=== PATIENT | female | born 1950 | race Caucasian/White ===

== ENCOUNTER → 2016-12-29 | Outpatient (REF) | payer MEDICARE, OTHER ==
[~2016-12-29] MED LIST: /BACL20TA PO; /BISA10SU PR; /ESCI10TA PO; /MOM400 PO; /PANT40TA PO; ACET-654 PO; ACET650S3 PR; ACETGRA PR; ASPI81TA85 PO; BACL10TA2 PO; BALMEX TOP; BISA10SU30 PR; CALC500T36 PO; CIPR500T89 PO; COUMADIN PO; DILA100C PO; ENSU-12 PO; ENSULIQ2 PO; ENSURE COMPLETE PO; JEVILIQ10 PO; KLOR10TA5 PO; LEVA250T PO; LEVO250T PO; LIPI20TA PO; LOPR1TAB6 PO; LORT5TAB PO; MAGN400C2 PO; MAGN400T5 PO; MAGNESIUM HYDROXIDE PO; METO50TA2 PO; MILK2400 PO; MOM30SS PO; MULTIVITAMIN/MINERAL PO; MYLASUS2 PO; NYSTATIN POWDER TOP; OMEP40CA2 PO; PHEN125S PO; PREV30CA6 PO; PROC10TA PO; PROM25AM IM; PROT1TAB2 PO; PYRI200T5 PO; TUMS500C PO; TYLE325T5 PO; VESI10TA PO; VITA20008 PO; WATER GT; XARE15TA PO; [UNRECOGNIZED DRUG - CODE] PR; [UNRECOGNIZED DRUG - OTHER]
== END ==
LOC: M LAB REF 12:45
PROVIDERS: ATTEND Internal Medicine
DX: R30.0 Dysuria (principal)

== ENCOUNTER → 2017-02-12 | Outpatient (REF) | payer MEDICARE, OTHER ==
[~2017-02-12] MED LIST changes: +MYLASUS16 PO; -MYLASUS2 PO
== END ==
LOC: SKLABADC 08:44
PROVIDERS: ATTEND Psychiatry & Neurology Neurology
DX: I63.9 Cerebral infarction, unspecified (principal); R56.9 Unspecified convulsions; Z79.899 Other long term (current) drug therapy

== ENCOUNTER → 2017-03-26 | Outpatient (REF) | payer MEDICARE, OTHER ==
[2017-03-26 12:13] LABS: BASO % 0.6 % (0.0-1.0); EOS # 0.1 K/mm3 (0.0-0.50); EOS % 1.4 % (0.0-3.0); LARGE UNSTAINED CELL # 0.1 K/mm3 (0.0-0.4); LARGE UNSTAINED CELL % 1.5 % (0.0-4.0); LYMPH # 1.8 K/mm3 (1.5-4.5); LYMPH % 30.2 % (24.0-44.0); MEAN CORPUSCULAR HEMOGLOBIN 31.7 pg (27.0-33.0); MEAN CORPUSCULAR HGB CONC 32.9 g/dl (32.0-36.5); MEAN CORPUSCULAR VOLUME 96.5 fl (80.0-96.0); MONO # 0.4 K/mm3 (0.0-0.8); MONO % 6.5 % (0.0-5.0); NEUTROPHILS # 3.3 K/mm3 (1.8-7.7); NEUTROPHILS % 59.9 % (36.0-66.0); PLATELET COUNT, AUTOMATED 300 k/mm3 (150-450); RED CELL DISTRIBUTION WIDTH 13.4 % (11.5-14.5); WHITE BLOOD COUNT 5.5 K/mm3 (4.0-10.0)
[2017-03-26 12:53] LABS: ANION GAP 8 MEQ/L (8-16); BLOOD UREA NITROGEN 20 MG/DL (7-18); CALCIUM LEVEL 9.3 MG/DL (8.8-10.2); CARBON DIOXIDE LEVEL 30 MEQ/L (21-32); CHLORIDE LEVEL 104 MEQ/L (98-107); CHOLESTEROL LEVEL 182 MG/DL (<200); CREATININE FOR GFR 0.65 MG/DL (0.55-1.02); GLOMERULAR FILTRATION RATE > 60.0 (>45); GLUCOSE, FASTING 73 MG/DL (80-110); POTASSIUM SERUM 4.1 MEQ/L (3.5-5.1); SODIUM LEVEL 142 MEQ/L (136-145); TRIGLYCERIDES LEVEL 94 MG/DL (<150)
== END ==
LOC: SKLABADC 08:40
PROVIDERS: ATTEND Internal Medicine
DX: E78.5 Hyperlipidemia, unspecified (principal); K76.0 Fatty (change of) liver, not elsewhere classified

== ENCOUNTER → 2017-07-17 | Outpatient (REF) | payer MEDICARE, OTHER ==
[~2017-07-17] MED LIST changes: -ACET-654 PO; +ACET1TAB17 PO; +LEVA1TAB PO; -LEVA250T PO; +PYRI1TAB5 PO; -PYRI200T5 PO; -VESI10TA PO; +VESI10TA2 PO
== END ==
LOC: M LAB REF 16:00
PROVIDERS: ATTEND Internal Medicine
DX: N39.0 Urinary tract infection, site not specified (principal); N32.81 Overactive bladder

== ENCOUNTER → 2017-08-09 | Outpatient (REF) | payer MEDICARE, OTHER ==
[2017-08-09 13:15] LABS: MEAN CORPUSCULAR HGB CONC 32.7 g/dl (32.0-36.5); PLATELET COUNT, AUTOMATED 321 10^3/uL (150-450); WHITE BLOOD COUNT 5.7 10^3/uL (4.0-10.0)
[2017-08-09 13:32] LABS: ADD MANUAL DIFFER YES; ALBUMIN 3.3 GM/DL (3.2-5.2); ALBUMIN/GLOBULIN RATIO 0.77 (1.00-1.93); ALKALINE PHOSPHATASE 208 U/L (45-117); ALT/SGPT 60 U/L (12-78); ANION GAP 6 MEQ/L (8-16); AST/SGOT 52 U/L (15-37); BILIRUBIN,TOTAL 0.2 MG/DL (0.2-1.0); BLOOD UREA NITROGEN 14 MG/DL (7-18); CALCIUM LEVEL 8.8 MG/DL (8.8-10.2); CARBON DIOXIDE LEVEL 31 MEQ/L (21-32); CHLORIDE LEVEL 105 MEQ/L (98-107); CREATININE FOR GFR 0.59 MG/DL (0.55-1.02); DIFF SLIDE NUMBER 224; GLOMERULAR FILTRATION RATE > 60.0 (>45); GLUCOSE, FASTING 98 MG/DL (80-110); POTASSIUM SERUM 4.1 MEQ/L (3.5-5.1); SODIUM LEVEL 142 MEQ/L (136-145); TOTAL PROTEIN 7.6 GM/DL (6.4-8.2)
[2017-08-09 15:57] LABS: BANDS 1 % (< 11); EOSINOPHILS 1 % (0-5)
== END ==
LOC: SKLABADC 11:06
PROVIDERS: ATTEND Internal Medicine
DX: I69.854 Hemiplegia and hemiparesis following other cerebrovascular disease affecting left non-dominant side (principal); N39.0 Urinary tract infection, site not specified; K76.0 Fatty (change of) liver, not elsewhere classified; R79.89 Other specified abnormal findings of blood chemistry; G40.509 Epileptic seizures related to external causes, not intractable, without status epilepticus

== ENCOUNTER → 2017-10-22 | Outpatient (REF) | payer MEDICARE, OTHER ==
[~2017-10-22] MED LIST changes: +AMOX500C PO; +IBUP-1022 PO; +LANS30CA; +MONT10TA2; +PERC5TAB12 PO
[2017-10-22 10:35] LABS: BASO % 0.3 % (0.0-1.0); EOS % 0.4 % (0.0-3.0); IMMATURE GRANULOCYTE % 0.3 % (0-0); LYMPH # 2.1 10^3/uL (1.5-4.5); LYMPH % 30.2 % (24.0-44.0); MEAN CORPUSCULAR HEMOGLOBIN 30.8 pg (27.0-33.0); MEAN CORPUSCULAR VOLUME 93.4 fl (80.0-96.0); MONO # 0.9 10^3/uL (0.0-0.8); MONO % 12.6 % (0.0-5.0); NEUTROPHILS # 3.9 10^3/uL (1.8-7.7); NEUTROPHILS % 56.2 % (36.0-66.0); PLATELET COUNT, AUTOMATED 323 10^3/uL (150-450); RED CELL DISTRIBUTION WIDTH 14.1 % (11.5-14.5); WHITE BLOOD COUNT 6.9 10^3/uL (4.0-10.0)
[2017-10-22 11:25] LABS: ALBUMIN 3.3 GM/DL (3.2-5.2); ALBUMIN/GLOBULIN RATIO 0.77 (1.00-1.93); ALKALINE PHOSPHATASE 198 U/L (45-117); ALT/SGPT 28 U/L (12-78); ANION GAP 9 MEQ/L (8-16); AST/SGOT 18 U/L (7-37); BILIRUBIN,TOTAL 0.2 MG/DL (0.2-1.0); BLOOD UREA NITROGEN 16 MG/DL (7-18); CALCIUM LEVEL 8.9 MG/DL (8.8-10.2); CARBON DIOXIDE LEVEL 26 MEQ/L (21-32); CHLORIDE LEVEL 107 MEQ/L (98-107); CREATININE FOR GFR 0.65 MG/DL (0.55-1.02); GLOMERULAR FILTRATION RATE > 60.0 (>45); GLUCOSE, FASTING 96 MG/DL (80-110); POTASSIUM SERUM 4.2 MEQ/L (3.5-5.1); SODIUM LEVEL 142 MEQ/L (136-145); TOTAL PROTEIN 7.6 GM/DL (6.4-8.2)
== END ==
LOC: SKLABADC 09:05
PROVIDERS: ATTEND Psychiatry & Neurology Neurology
DX: R56.9 Unspecified convulsions (principal); I63.9 Cerebral infarction, unspecified

== ENCOUNTER 2017-10-25 08:52 | Emergency (ER) | payer MEDICARE, OTHER ==
[~2017-10-25] VITALS: Ht 162.6 cm; Wt 103.0 kg
[~2017-10-25 08:52] MED LIST changes: -AMOX500C PO; -IBUP-1022 PO; -LANS30CA; -MONT10TA2; -PERC5TAB12 PO
[2017-10-25 09:21] VITALS: BP 132/68
[2017-10-25] MEDS ORDERED: DILA100C PO (09:26)
[2017-10-25] MEDS ORDERED: LANS30CA (09:26)
[2017-10-25] MEDS ORDERED: MONT10TA2 (09:26)
[2017-10-25] MEDS ORDERED: AMOX500C PO (09:41)
[2017-10-25] MEDS ORDERED: IBUP-1022 PO (09:47)
[2017-10-25] MEDS ORDERED: PERC5TAB12 PO (09:47)
== END 2017-10-25 09:56 | disposition home or self-care (01) ==
LOC: M ED 08:52
DX: K05.10 Chronic gingivitis, plaque induced (principal); K08.89 Other specified disorders of teeth and supporting structures; Z79.899 Other long term (current) drug therapy; Z79.82 Long term (current) use of aspirin

== ENCOUNTER → 2017-11-01 | Outpatient (CLI) | payer MEDICARE, OTHER ==
[~2017-11-01] MED LIST changes: +AMOX500C PO; +IBUP-1022 PO; +LANS30CA; +MONT10TA2; +PERC5TAB12 PO
--- NOTE | 2017-11-01 11:19 | REPMRS ---
Patient History The patient states she has not had a clinical breast exam in over a year. Patient is postmenopausal, has history of cancer in the right breast at age 53, had previous chemotherapy at age 53, and is nulliparous. Family history of prostate cancer in father at age 50 or over and breast cancer in mother at age 45. Benign radio exam breast specimen of the right breast, October 18, 2014. Benign stereotatic loc for ea lesion of the right breast, October 18, 2014. Benign excisional biopsy of the left breast, 2003. Malignant excisional biopsy of the right breast, 2003. Chemotherapy, 2003. Radiation therapy of the right breast, 2003. Took tamoxifen for 5 years. Digital Woman Screen Mammo: November 01, 2017 - Exam #: [id number] Bilateral CC and MLO view(s) were taken. Technologist: Irais Munoz, Technologist Prior study comparison: September 20, 2016, digital woman screen mammo performed at [facility]. September 19, 2015, digital woman screen mammo performed at [facility]. FINDINGS: There are scattered fibroglandular densities. There is a needle biopsy marker clip in the right breast. There has been no change in the appearance of the mammogram from the prior studies. There is a mild amount of scattered fibroglandular density which is fairly symmetric. There is no interval development of dominant mass, architectural distortion, or clustered microcalcification suggestive of malignancy. ASSESSMENT: BI-RADS/ACR category 2 mammogram. Benign finding(s). Recommendation Routine screening mammogram in 1 year (for women over age 40). This mammogram was interpreted with the aid of an FDA-approved computer-aided dectection system. Electronically Signed By: Tristan Gannon MD 11/01/17 0124
--- NOTE | 2017-11-06 10:24 | DEXA ---
AP SPINE L1 - L4 0.857 -2.7 -1.1 LT FEMUR TOTAL intramedullary afsaneh and femoral neck pin RT FEMUR TOTAL 0.754 -2.0 -0.7 TOTAL BODY TOTAL OTHER COMMENTS: There is low bone density of the right hip. There is osteoporosis of the spine. The increased density of the spine does represent a significant change. The increased density of the right hip does represent a significant change. The density of the spine has increased 12.5% since the initial exam on 2003. The spine density has increased 5.4% since the most recent exam on 10/12/2014. The density of the right hip has increased 13.7% since the initial exam on 05/24. The density of the right hip has increased 7.9% since the most recent exam on . FOLLOW-UP: Recommendation for the next bone density exam: 2 years. BIRDIE
== END ==
LOC: M WHC 09:53
PROVIDERS: ATTEND Internal Medicine
DX: Z12.31 Encounter for screening mammogram for malignant neoplasm of breast (principal); Z13.820 Encounter for screening for osteoporosis; M85.9 Disorder of bone density and structure, unspecified; Z78.0 Asymptomatic menopausal state; Z85.3 Personal history of malignant neoplasm of breast
CPT/HCPCS: 77080; G0202

== ENCOUNTER → 2018-04-17 | Outpatient (REF) | payer MEDICARE, OTHER | LOC: M LAB REF 16:56 | DX: N39.0 Urinary tract infection, site not specified (principal) | CPT/HCPCS: 87186 ==

== ENCOUNTER → 2018-04-25 | Outpatient (REF) | payer MEDICARE, OTHER ==
[2018-04-25 12:00] LABS: HEMATOCRIT 40.2 % (36.0-47.0); HEMOGLOBIN 13.4 g/dl (12.0-15.5); MEAN CORPUSCULAR HEMOGLOBIN 31.2 pg (27.0-33.0); MEAN CORPUSCULAR HGB CONC 33.3 g/dl (32.0-36.5); MEAN CORPUSCULAR VOLUME 93.7 fl (80.0-96.0); PLATELET COUNT, AUTOMATED 310 10^3/uL (150-450); RED BLOOD COUNT 4.29 10^6/uL (4.00-5.40); RED CELL DISTRIBUTION WIDTH 14.4 % (11.5-14.5); WHITE BLOOD COUNT 6.1 10^3/uL (4.0-10.0)
[2018-04-25 12:02] LABS: ADD MANUAL DIFFER YES; DIFF SLIDE NUMBER 182; POSITIVE MORPH POS FLAG
[2018-04-25 12:22] LABS: ATYPICAL LYMPH 3 % (0-5); EOSINOPHILS 1 % (0-5); LYMPHOCYTES 41 % (16-52); MONOCYTES 6 % (0-8); NEUTROPHILS 49 % (35-75)
[2018-04-25 12:23] LABS: ANISOCYTOSIS 1+; PLATELET ESTIMATE NORMAL (NORMAL)
[2018-04-25 12:52] LABS: ALBUMIN 3.6 GM/DL (3.2-5.2); ALBUMIN/GLOBULIN RATIO 0.84 (1.00-1.93); ALKALINE PHOSPHATASE 218 U/L (45-117); ALT/SGPT 41 U/L (12-78); ANION GAP 7 MEQ/L (8-16); AST/SGOT 27 U/L (7-37); BILIRUBIN,TOTAL 0.2 MG/DL (0.2-1.0); BLOOD UREA NITROGEN 21 MG/DL (7-18); CALCIUM LEVEL 8.9 MG/DL (8.8-10.2); CARBON DIOXIDE LEVEL 30 MEQ/L (21-32); CHLORIDE LEVEL 107 MEQ/L (98-107); CREATININE FOR GFR 0.58 MG/DL (0.55-1.30); GLOMERULAR FILTRATION RATE > 60.0 (>45); GLUCOSE, FASTING 80 MG/DL (70-100); POTASSIUM SERUM 4.4 MEQ/L (3.5-5.1); SODIUM LEVEL 144 MEQ/L (136-145); TOTAL PROTEIN 7.9 GM/DL (6.4-8.2)
== END ==
LOC: SKLABADC 10:16
DX: R56.9 Unspecified convulsions (principal)
CPT/HCPCS: 80185

== ENCOUNTER → 2018-10-21 | Outpatient (REF) | payer MEDICARE, OTHER, MEDICAID ==
[2018-10-21 17:57] LABS: BASO % 0.4 % (0.0-1.0); EOS % 0.5 % (0.0-3.0); HEMATOCRIT 40.6 % (36.0-47.0); HEMOGLOBIN 13.3 g/dl (12.0-15.5); IMMATURE GRANULOCYTE % 0.3 % (0-3.0); LYMPH # 2.2 10^3/uL (1.5-4.5); LYMPH % 29.7 % (24.0-44.0); MEAN CORPUSCULAR HEMOGLOBIN 31.3 pg (27.0-33.0); MEAN CORPUSCULAR HGB CONC 32.8 g/dl (32.0-36.5); MEAN CORPUSCULAR VOLUME 95.5 fl (80.0-96.0); MONO # 0.9 10^3/uL (0.0-0.8); MONO % 12.3 % (0.0-5.0); NEUTROPHILS # 4.2 10^3/uL (1.8-7.7); NEUTROPHILS % 56.8 % (36.0-66.0); PLATELET COUNT, AUTOMATED 354 10^3/uL (150-450); RED BLOOD COUNT 4.25 10^6/uL (4.00-5.40); RED CELL DISTRIBUTION WIDTH 14.3 % (11.5-14.5); WHITE BLOOD COUNT 7.4 10^3/uL (4.0-10.0)
[2018-10-21 21:09] LABS: ALBUMIN 3.3 GM/DL (3.2-5.2); ALBUMIN/GLOBULIN RATIO 0.75 (1.00-1.93); ALKALINE PHOSPHATASE 198 U/L (45-117); ALT/SGPT 30 U/L (12-78); ANION GAP 9 MEQ/L (8-16); AST/SGOT 19 U/L (7-37); BILIRUBIN,TOTAL 0.2 MG/DL (0.2-1.0); BLOOD UREA NITROGEN 14 MG/DL (7-18); CALCIUM LEVEL 8.8 MG/DL (8.8-10.2); CARBON DIOXIDE LEVEL 26 MEQ/L (21-32); CHLORIDE LEVEL 107 MEQ/L (98-107); CREATININE FOR GFR 0.67 MG/DL (0.55-1.30); FOLATE 6.1 NG/ML; GLOMERULAR FILTRATION RATE > 60.0 (>45); GLUCOSE, FASTING 68 MG/DL (70-100); PHENYTOIN (DILANTIN) 14.4 UG/ML (10.0-20.0); POTASSIUM SERUM 4.1 MEQ/L (3.5-5.1); SODIUM LEVEL 142 MEQ/L (136-145); TOTAL PROTEIN 7.7 GM/DL (6.4-8.2); VITAMIN B12 LEVEL > 2000 PG/ML
== END ==
LOC: M LABNEURO 13:27
DX: G40.909 Epilepsy, unspecified, not intractable, without status epilepticus (principal)
CPT/HCPCS: 80185

== ENCOUNTER → 2018-11-05 | Outpatient (CLI) | payer MEDICARE, MEDICAID ==
[~2018-11-05] MED LIST changes: -ACET1TAB17 PO; +ACET1TAB55 PO; -LEVA1TAB PO; +LEVA250T13 PO
--- NOTE | 2018-11-05 14:40 | REPMRS ---
Patient History The patient states she had a clinical breast exam in 06/28 Family history of breast cancer at age 45 in mother, prostate cancer at age 50 or over in father. Benign radio exam breast specimen of the right breast, October 18, 2014. Benign stereotatic loc for ea lesion of the right breast, October 18, 2014. Benign excisional biopsy of the left breast, 2003. Malignant excisional biopsy of the right breast, 2003. Chemotherapy, 2003. Radiation therapy of the right breast, 2003. Took tamoxifen for 5 years. Digital Woman Screen Mammo: November 05, 2018 - Exam #: [id number] Bilateral CC and MLO view(s) were taken. Technologist: Irais Munoz, Technologist Prior study comparison: November 01, 2017, digital woman screen mammo performed at [facility]. September 20, 2016, digital woman screen mammo performed at [facility]. FINDINGS: The breast tissue is heterogeneously dense. This may lower the sensitivity of mammography. There has been no change in the appearance of the mammogram from the prior studies. There is a moderate amount of residual fibroglandular tissue which is fairly symmetric. There is no interval development of dominant mass, areas of architectural distortion, or clustered microcalcification typical of malignancy. Assessment: BI-RADS/ACR category 1 mammogram. Negative. Recommendation Routine screening mammogram in 1 year (for women over age 40). This mammogram was interpreted with the aid of an FDA-approved computer-aided dectection system. Electronically Signed By: Gonzalo Buchanan MD 11/05/18 [id number]
== END ==
LOC: M WHC 13:39
PROVIDERS: ATTEND Internal Medicine
DX: Z12.31 Encounter for screening mammogram for malignant neoplasm of breast (principal); Z80.3 Family history of malignant neoplasm of breast; Z85.3 Personal history of malignant neoplasm of breast; Z92.3 Personal history of irradiation; Z92.21 Personal history of antineoplastic chemotherapy; N60.31 Fibrosclerosis of right breast; N60.32 Fibrosclerosis of left breast

== ENCOUNTER → 2019-01-05 | Outpatient (REF) | payer MEDICARE, MEDICAID | LOC: M LAB REF 16:38 | PROVIDERS: ATTEND Internal Medicine | DX: G40.909 Epilepsy, unspecified, not intractable, without status epilepticus (principal) ==

== ENCOUNTER → 2019-04-27 | Outpatient (REF) | payer MEDICARE, MEDICAID ==
[~2019-04-27] MED LIST changes: -/BACL20TA PO; -/BISA10SU PR; -/ESCI10TA PO; -/MOM400 PO; -/PANT40TA PO; +BACL1TAB9 PO; +BISA10SU31 PR; +CALC12504 PO; -CALC500T36 PO; +LEXA1TAB PO; +MILK10SU PO
[2019-04-27 18:27] LABS: ALBUMIN 3.1 GM/DL (3.2-5.2); ALT/SGPT 43 U/L (12-78); BILIRUBIN,TOTAL 0.1 MG/DL (0.2-1.0); BLOOD UREA NITROGEN 19 MG/DL (7-18); CARBON DIOXIDE LEVEL 28 MEQ/L (21-32); CHLORIDE LEVEL 109 MEQ/L (98-107); CREATININE FOR GFR 0.54 MG/DL (0.55-1.30); GLOMERULAR FILTRATION RATE > 60.0 (>45); GLUCOSE, FASTING 57 MG/DL (70-100); PHENYTOIN (DILANTIN) 11.5 UG/ML (10.0-20.0); POTASSIUM SERUM 4.2 MEQ/L (3.5-5.1); SODIUM LEVEL 142 MEQ/L (136-145); TOTAL PROTEIN 7.2 GM/DL (6.4-8.2)
[2019-04-27 18:30] LABS: BASO # 0.1 10^3/uL (0.0-0.2); BASO % 0.6 % (0.0-1.0); EOS # 0.1 10^3/uL (0.0-0.50); EOS % 1.1 % (0.0-3.0); HEMATOCRIT 38.1 % (36.0-47.0); HEMOGLOBIN 12.6 g/dl (12.0-15.5); LYMPH # 2.4 10^3/uL (1.5-4.5); LYMPH % 28.2 % (24.0-44.0); MEAN CORPUSCULAR HEMOGLOBIN 32.3 pg (27.0-33.0); MEAN CORPUSCULAR HGB CONC 33.1 g/dl (32.0-36.5); MEAN CORPUSCULAR VOLUME 97.7 fl (80.0-96.0); MONO % 12.3 % (0.0-5.0); NEUTROPHILS # 4.8 10^3/uL (1.8-7.7); NEUTROPHILS % 57.6 % (36.0-66.0); PLATELET COUNT, AUTOMATED 338 10^3/uL (150-450); WHITE BLOOD COUNT 8.4 10^3/uL (4.0-10.0)
== END ==
LOC: M LABNEURO 13:35
PROVIDERS: ATTEND Psychiatry & Neurology Neurology
DX: G40.89 Other seizures (principal)

== ENCOUNTER → 2019-08-03 | Outpatient (REF) | payer MEDICARE, MEDICAID ==
[~2019-08-03] MED LIST changes: -CALC12504 PO; +CALC500T61 PO
[2019-08-03 16:43] LABS: PHENYTOIN (DILANTIN) 12.1 UG/ML (10.0-20.0)
== END ==
LOC: M LAB REF 16:18
PROVIDERS: ATTEND Internal Medicine
DX: G40.909 Epilepsy, unspecified, not intractable, without status epilepticus (principal); Z79.899 Other long term (current) drug therapy

== ENCOUNTER → 2019-12-03 | Outpatient (REF) | payer MEDICARE, MEDICAID | LOC: M LAB REF 16:35 | PROVIDERS: ATTEND Internal Medicine | DX: J18.9 Pneumonia, unspecified organism (principal); R05 Cough; R50.9 Fever, unspecified ==

== ENCOUNTER → 2019-12-17 | Outpatient (REF) | payer MEDICARE, MEDICAID ==
[~2019-12-17] MED LIST changes: -MONT10TA2; +MONT10TA4
== END ==
LOC: M LAB REF 16:24
PROVIDERS: ATTEND Internal Medicine
DX: R79.82 Elevated C-reactive protein (CRP) (principal)

== ENCOUNTER → 2020-05-24 | Outpatient (REF) | payer MEDICARE, MEDICAID ==
[~2020-05-24] MED LIST changes: +ALEN35TA54; +ALLE180T33 PO; -ASPI81TA85 PO; +ASPI81TA86 PO; +CRAN400C PO; +ECOT81TA5 PO; +FURO20TA2; +METO1TAB87; +OXYB10TA23; +PREV1CAP
== END ==
LOC: M LAB REF 16:18
PROVIDERS: ATTEND Internal Medicine
DX: G40.909 Epilepsy, unspecified, not intractable, without status epilepticus (principal)

== ENCOUNTER → 2020-09-18 | Outpatient (CLI) | payer MEDICARE, MEDICAID | LOC: M LABSMTC 09:47 | PROVIDERS: ATTEND Anesthesiology | DX: Z01.812 Encounter for preprocedural laboratory examination (principal); Z20.828 Contact with and (suspected) exposure to other viral communicable diseases | CPT/HCPCS: C9803; U0003 ==

== ENCOUNTER 2020-09-23 07:32 | Day surgery (SDC) | payer MEDICARE, MEDICAID ==
[~2020-09-23] VITALS: Ht 165.1 cm; Wt 97.5 kg
[~2020-09-23 07:32] MED LIST changes: +BACITRACIN PWD 50,000 UNITS VIAL As Ordered ONE; +BUPIVACAINE HCL 0.5% 30 ML VIAL As Ordered ONE; +LIDOCAINE 2% MDV 20ML VIAL As Ordered ONE; +LR 1,000 ML IV ONE; +NEOSPORIN GU IRRIG 20 ML VIAL As Ordered ONE; +ceFAZolin SOD 2 GM in IV 1 EA IV ONE; +dexameTHASONE 4 MG/ML 1ML VIAL (J1100 PER 1MG) As Ordered ONE
[2020-09-23] MEDS ORDERED: MIDAZOLAM INJ 2MG/2ML VIAL (J2250 PER 1MG) As Ordered ONE (07:49)
[2020-09-23] MEDS ORDERED: fentaNYL 100 MCG/2 ML INJECTION (J3010) As Ordered ONE (07:49)
[2020-09-23] MEDS ORDERED: propofoL 500 MG/50 ML VIAL As Ordered ONE (07:49)
[2020-09-23] MEDS ORDERED: LIDOCAINE 2% 100MG/5ML SDV (FOR ANES.) As Ordered ONE (07:52)
[2020-09-23] MEDS ORDERED: ePHEDrine SULFATE 25 MG/5 ML(5MG/ML) SYRINGE As Ordered ONE (10:04)
[2020-09-23] MEDS ORDERED: PHENYLephrine HCL 500 MCG/5 ML (100MCG/ML) SYRINGE (J2370) As Ordered ONE (10:04)
[2020-09-23] MEDS ORDERED: ACETAMINOPHEN 1000MG 100ML IV BTL (OFIRMEV) (J0131 PER 10MG) As Ordered ONE (10:05)
[2020-09-23] MEDS ORDERED: oxyCODONE 5MG TAB PO PRN (12:00)
[2020-09-23] MEDS ORDERED: LR 1,000 ML IV SCH (12:00)
[2020-09-23] MEDS ORDERED: ONDANSETRON 4MG/2ML VIAL IV PRN (12:00)
[2020-09-23 12:10] VITALS: BP 112/56
--- NOTE | 2020-09-23 13:25 | REP ---
INDICATION: JOINT FUSION OF LEFT GREAT TOE. COMPARISON: None. TECHNIQUE: Three portable views were obtained. FINDINGS: A single cancellous screw and a single K-wire are seen affixing the 1st digit. Overlying casting material obscures the bony detail. The alignment of the fixation is near anatomical. IMPRESSION: Postoperative changes and limitations as described above. <Electronically signed by Darnell Melgoza > 09/23/20 [id number]
--- NOTE | 2020-09-26 09:01 | RO ---
DATE OF OPERATION: 09/23/2020 SURGEON: Dr. Darwin Nunez, DPM PARTRIDGE FARMER: None. ANESTHESIA: Local monitored anesthesia care (MAC). IRRIGATION: Dilute bacitracin, neomycin, and polymyxin B solution. HEMOSTASIS: Ankle pneumatic tourniquet at 200 mm of mercury for 71 minutes. HARDWARE UTILIZED: An Arthrex 4.0 x 4 mm cannulated compression screw and a 1.3 mm wire and a 4.0 x 10 mm biocomposite screw. PROCEDURES PERFORMED: 1. Fusion, interphalangeal joint, left hallux, with internal screw and external wire fixation. 2. Transfer of the extensor hallucis longus tendon to the 1st metatarsal neck/head, left foot. ESTIMATED BLOOD LOSS: Less than 1 mL. DESCRIPTION OF OPERATION: On 09/23/2020, this 69-year-old white female was taken from the hospital room to the operating room and placed on the operating table in the supine position. Following the induction of intravenous (IV) sedation and local and regional anesthesia, the left lower extremity was prepped and draped in the usual aseptic manner. Attention was directed to the patient's left foot. There was noted to be an extensor hallux deformity. At this time the following procedure was performed. INTERPHALANGEAL JOINT FUSION OF THE HALLUX WITH SCREW AND WIRE FIXATION, LEFT FOOT: Attention was directed to the patient's left hallux, and two semielliptical incisions were placed over the interphalangeal joint of the hallux, and a wedge of skin was removed. A transverse tenotomy and capsulotomy were performed at the interphalangeal joint of the hallux, and the medial and collateral ligaments were dissected. Utilizing a power saw, an osteotomy was performed at the cartilage of the head of the proximal phalanx. Cartilage was then removed off the base of the distal phalanx. Intersesamoid ossicle was noted on the plantar aspect, which was removed. A small stab incision was placed on the distal aspect of the hallux, and a K-wire was driven through the middle and distal phalanx. Utilizing a C-arm, a screw was placed measuring 4.0 x 40 mm across the hallux. A smaller screw was first selected; however, the final screw placed was 4.0 x 40 mm. The patient's bone was quite soft; therefore, this was augmented with a 1.3 mm wire driven from the distal medial aspect across the fusion site utilizing a C-arm to help visualize fixation, and this was bent, and a protective ball was placed on the ends of the wire. The tendon was then freed along the hallux, and the following procedure was performed. TRANSFER EXTENSOR HALLUCIS LONGUS TENDON TO THE HEAD OF THE 1ST METATARSAL: A 4 cm incision was placed over the head and shaft of the 1st metatarsal, and dissection was carried down to the level of the proximal phalanx. The tendon was then freed along the sheath and was pulled into the operative wound for transfer. Utilizing a 3.5 drill, a hole was created across the 1st metatarsal in the distal head proximal to the articular cartilage. Utilizing a tendon passer, the tendon was pulled through this fusion site. Utilizing 2.0 FiberWire, a Artem and Pat stitch was placed through the distal aspect of the tendon, then pulled under a good tension, sutured onto the periosteum, and the repair was augmented with a 4.0 x 10 biocomposite screw. The wound was flushed with copious amounts of dilute bacitracin, neomycin, and polymyxin B solution. Attention was directed toward closure, where the periosteum was coapted and maintained with 3- 0 Vicryl in a simple interrupted-type fashion. Subcutaneous tissues were coapted and maintained using 4-0 Vicryl in a simple interrupted-type fashion. Skin incisions were coapted and maintained utilizing 4-0 Prolene in a simple interrupted-type fashion. Following the completion of the surgical procedure, attention was directed toward bandaging, where a sterile compressive bandage was applied consisting of Adaptic, 4 x 4's, 4 x 4 splints, Mali, Kerlix, and Coban. A well-molded fiberglass boot cast was then placed on the patient's left extremity. Tourniquet was removed. Instantaneous capillary filling time was noted at digits 1-5 of the patient's left foot. The patient having apparently having tolerated the surgical procedure well was taken from the operating room to the recovery room for further monitoring by the anesthesia department. BIRDIE
== END 2020-09-23 13:23 | disposition home or self-care (01) ==
LOC: M SDC 07:32
PROVIDERS: ATTEND Podiatrist
DX: M20.12 Hallux valgus (acquired), left foot (principal); M79.672 Pain in left foot; M79.675 Pain in left toe(s); K21.9 Gastro-esophageal reflux disease without esophagitis; I10 Essential (primary) hypertension; Z79.899 Other long term (current) drug therapy; Z92.3 Personal history of irradiation; Z85.3 Personal history of malignant neoplasm of breast
CPT/HCPCS: 27691; 28755; 73630; 88300; C1713; J0131; J0690; J1100; J2250; J2370; J3010

== ENCOUNTER → 2020-10-28 | Outpatient (REF) | payer MEDICARE, MEDICAID ==
[~2020-10-28] MED LIST changes: -BACITRACIN PWD 50,000 UNITS VIAL As Ordered ONE; -BUPIVACAINE HCL 0.5% 30 ML VIAL As Ordered ONE; -LIDOCAINE 2% MDV 20ML VIAL As Ordered ONE; -LR 1,000 ML IV ONE; -MONT10TA4; +MONT5TAB2; -NEOSPORIN GU IRRIG 20 ML VIAL As Ordered ONE; -ceFAZolin SOD 2 GM in IV 1 EA IV ONE; -dexameTHASONE 4 MG/ML 1ML VIAL (J1100 PER 1MG) As Ordered ONE
== END ==
LOC: M LAB REF 16:06
PROVIDERS: ATTEND Internal Medicine
DX: G40.909 Epilepsy, unspecified, not intractable, without status epilepticus (principal)

== ENCOUNTER → 2021-03-03 | Outpatient (REF) | payer MEDICARE, MEDICAID ==
[~2021-03-03] MED LIST changes: +MONT10TA10; -MONT5TAB2
[2021-03-03 17:43] LABS: PHENYTOIN (DILANTIN) 19.2 UG/ML (10.0-20.0)
[2021-03-06 08:19] LABS: TOTAL PROTEIN 7.7 GM/DL (6.4-8.2)
[2021-03-08 10:12] LABS: ALBUMIN % 48.1 % (55.8-66.1); ALPHA-1-GLOBULIN % 4.9 % (2.9-4.9); ALPHA-2-GLOBULINS % 13.7 % (7.1-11.8); BETA-1-GLOBULINS % 5.2 % (4.7-7.2); BETA-2-GLOBULINS % 7.7 % (3.2-6.5); GAMMA GLOBULIN % 20.4 % (11.1-18.8)
[2021-03-08 10:13] LABS: ALPHA-1-GLOBULINS 0.38 GM/DL (0.17-0.41); ALPHA-2-GLOBULINS 1.05 GM/DL (0.42-0.99); BETA-2-GLOBULINS 0.59 GM/DL (0.19-0.55); GAMMA GLOBULINS 1.57 GM/DL (0.65-1.58)
== END ==
LOC: M LAB REF 16:31
PROVIDERS: ATTEND Internal Medicine
DX: K21.9 Gastro-esophageal reflux disease without esophagitis (principal); I69.854 Hemiplegia and hemiparesis following other cerebrovascular disease affecting left non-dominant side; G40.909 Epilepsy, unspecified, not intractable, without status epilepticus; R79.89 Other specified abnormal findings of blood chemistry

== ENCOUNTER → 2021-03-06 | Outpatient (CLI) | payer MEDICARE, MEDICAID ==
--- NOTE | 2021-03-13 09:52 | REP ---
INDICATION: LOWER BACK PAIN. COMPARISON: 10/04/2014. TECHNIQUE: Five views lumbosacral spine. FINDINGS: There are stable mild compression deformities of the L1 and L4 vertebral bodies. There is a stable compression deformity of T10 vertebral body as well. Disc space heights are preserved. There is mild diffuse spurring. The posterior elements are intact. There is sclerosis and spurring at the posterior facet joints of L4-5 and L5-S1. There are scattered metallic clips in the abdomen. IMPRESSION: Stable compression deformities of T10, L1 and L4. Disc space heights are preserved. Facet arthropathy L4-5 and L5-S1. There is mild diffuse spurring. <Electronically signed by Gonzalo Buchanan > 03/13/21 0909
== END ==
LOC: M WUC 13:25
PROVIDERS: ATTEND Internal Medicine
DX: M54.5 Low back pain (principal); R79.89 Other specified abnormal findings of blood chemistry; M46.06 Spinal enthesopathy, lumbar region

== ENCOUNTER → 2021-03-06 | Outpatient (REF) | payer MEDICARE, MEDICAID | LOC: M LAB REF 12:19 | PROVIDERS: ATTEND Internal Medicine | DX: R79.89 Other specified abnormal findings of blood chemistry (principal) ==

== ENCOUNTER → 2021-03-08 | Outpatient (CLI) | payer MEDICARE, MEDICAID ==
--- NOTE | 2021-03-08 09:22 | REP ---
INDICATION: ELEVATED ALK PHOS, HX FATTY LIVER DISEASE. COMPARISON: 04/12/2016 FINDINGS: Multiple ultrasonographic images of the liver shows diffuse increased echos throughout the hepatic parenchyma without evidence of a focal or measurable distinct mass or ductal dilatation. The common bile duct was not visualized. Images of the pancreatic region show no gross abnormality. The imaged portion of the right kidney is unchanged from the prior exam. There is evidence of atrophic change. IMPRESSION: Status post cholecystectomy. Fatty infiltration of the liver is suspected, however, the overall appearance of the hepatic echo-pattern has changed rather significantly compared to the prior exam. Pre and post gadolinium enhanced hepatic MRI is recommended for further evaluation since a discrete mass can not be ruled. Accredited by the [employer] in General Ultrasound. <Electronically signed by Darnell Melgoza > 03/08/21 0918
== END ==
LOC: M RAD 07:40
PROVIDERS: ATTEND Internal Medicine
DX: R74.8 Abnormal levels of other serum enzymes (principal)

== ENCOUNTER → 2021-04-13 | Outpatient (CLI) | payer MEDICARE, MEDICAID ==
[~2021-04-13] MED LIST changes: +PROHANCE 279.3MG/ML 15ML VIAL As Ordered ONE; +PROHANCE 279.3MG/ML 5ML VIAL As Ordered ONE
--- NOTE | 2021-04-14 09:25 | REP ---
INDICATION: ELEVATED LFT'S ABD LIVER US. COMPARISON: Ultrasound 03/08/2021, CT 02/07/2015. MRI thoracic and lumbar spine 10/13/2014. TECHNIQUE: Multiple sequences obtained in the axial coronal planes prior to and following the intravenous administration of 18 mL ProHance. FINDINGS: The liver is markedly enlarged, the length of the liver is approximately 24 cm. There is diffuse neoplastic infiltration of the liver. The right lobe of the liver is essentially replaced by tumor. Multiple innumerable confluent nodules, demonstrating suspicious enhancement, are seen throughout the right lobe, and there are multiple enhancing nodules throughout the left lobe as well. There is bulky confluent portal adenopathy which measures about 5.4 x 6.6 cm, extending to the aortocaval region and splaying the abdominal aorta and inferior vena cava. There is displacement of the pancreatic head, as well as the superior mesenteric artery and vein toward the left. The portal adenopathy directly abuts the pancreatic head. There is no definite pancreatic mass. There is no pancreatic duct or common bile duct dilatation. The no intrahepatic dilatation. There has been a prior cholecystectomy. There are mildly enlarged left para-aortic lymph nodes at the level of the left kidney. The spleen is normal in size with no intrinsic abnormality. The adrenal glands are normal. Multiple parapelvic cysts are seen of the left kidney. There is a 1 cm cyst in the mid right kidney. Multiple old, stable appearing compression deformities are noted of the thoracolumbar spine. There also multiple vertebral body hemangiomas, as seen on per prior MRI exams. IMPRESSION: Marked hepatomegaly with diffuse neoplastic infiltration of the liver. Bulky portal adenopathy displacing the pancreatic head and superior mesenteric artery and vein. Mild adjacent left para-aortic adenopathy. No biliary dilatation or pancreatic duct dilatation. <Electronically signed by Gonzalo Buchanan > 04/14/21 [id number]
== END ==
LOC: M RAD 16:15
PROVIDERS: ATTEND Internal Medicine
DX: R74.8 Abnormal levels of other serum enzymes (principal); R16.0 Hepatomegaly, not elsewhere classified; K76.89 Other specified diseases of liver; N28.1 Cyst of kidney, acquired; D18.09 Hemangioma of other sites
CPT/HCPCS: 74183; A9576

== ENCOUNTER → 2021-04-21 | Outpatient (CLI) | payer MEDICARE, MEDICAID ==
[~2021-04-21] MED LIST changes: +LIDOCAINE 1% MDV 20ML VIAL As Ordered ONE; -PROHANCE 279.3MG/ML 15ML VIAL As Ordered ONE; -PROHANCE 279.3MG/ML 5ML VIAL As Ordered ONE; +SODIUM BICARBONATE 8.4% INJ 50MEQ 50 ML VIAL As Ordered ONE
[2021-04-21 10:15] LABS: HEMATOCRIT 41.3 % (36.0-47.0); HEMOGLOBIN 13.2 g/dl (12.0-15.5); MEAN CORPUSCULAR HEMOGLOBIN 30.8 pg (27.0-33.0); MEAN CORPUSCULAR VOLUME 96.3 fl (80.0-96.0); PLATELET COUNT, AUTOMATED 267 10^3/uL (150-450); RED BLOOD COUNT 4.29 10^6/uL (4.00-5.40); WHITE BLOOD COUNT 5.6 10^3/uL (4.0-10.0)
[2021-04-21 10:22] LABS: INR 1.12; PROTHROMBIN TIME 14.7 SECONDS (12.5-14.3)
[2021-04-21 12:30] VITALS: BP 122/62
--- NOTE | 2021-04-21 18:35 | REP ---
INDICATION: TUMOR RT LOBE OF LIVER. COMPARISON: Liver ultrasound dated 03/08/2021, MRI dated 04/13/2021. TECHNIQUE: The procedure was performed by KAYLEE Kennedy, under the direct supervision of Dr. Buchanan. The risks and benefits of the procedure were explained to the patient and an informed consent was obtained both verbally and written. Directly prior to the start of the procedure a formal time-out was completed in the procedure room. FINDINGS: Using ultrasound guidance the right lobe liver mass was localized. The skin was prepped and draped in a sterile fashion. Twenty mL of buffered lidocaine was used as a local anesthetic. Using ultrasound guidance a 17/18 gauge coaxial needle biopsy system was inserted and advanced into the right lobe liver mass. Six core biopsy specimens were obtained and sent to pathology for further analysis. The patient tolerated the procedure well and there were no immediate complications. After the appropriate amount of monitored convalescence the patient was discharged from the department. IMPRESSION: 1. Ultrasound-guided right lobe liver mass biopsy. <Electronically signed by Lorin Valladares > 04/21/21 1253 <Electronically signed by Gonzalo Buchanan > 04/21/21 [id number]
== END ==
LOC: M IRPRO 09:31
PROVIDERS: ATTEND Internal Medicine
DX: C78.7 Secondary malignant neoplasm of liver and intrahepatic bile duct (principal)

== ENCOUNTER → 2021-05-08 | Outpatient (CLI) | payer MEDICARE, MEDICAID ==
[~2021-05-08] MED LIST changes: -LIDOCAINE 1% MDV 20ML VIAL As Ordered ONE; -SODIUM BICARBONATE 8.4% INJ 50MEQ 50 ML VIAL As Ordered ONE
--- NOTE | 2021-05-08 16:23 | REP ---
INDICATION: STAGING NEOPLASM OF UNCERTAIN BEHAVIOR D37.6. Ultrasound-guided needle biopsy of liver mass dated April 21, 2021 produce a diagnosis of metastatic breast carcinoma to the liver. COMPARISON: MRI abdomen April 13, 2021.. TECHNIQUE: Fifty-four minutes following the intravenous injection of a 9.85 mCi dose of F-18 FDG, three-dimensional PET scintigraphy is acquired from the skull base to the proximal thighs. Triplanar noncontrast CT scanning is acquired through the same anatomic range for attenuation correction, and image registration with scan parameters optimized to minimize radiation exposure to the patient. PET scintigraphy and CT datasets were fused and displayed on a workstation with multiplanar and projection display capability. FINDINGS: Incidental note is made of a fairly large area of encephalomalacia in the right temporal lobe and inferior frontal lobe consistent with an old intracranial infarction. Head and neck soft tissues are unremarkable. No stone hypermetabolic cervical adenopathy is seen. There is a 1 cm left subclavian hypermetabolic lymph node. Maximum standard uptake value is slightly elevated at 2.99. There is no evidence of axillary hypermetabolic shantanu uptake or axillary adenopathy. No abnormal hypermetabolic uptake is seen in either breast soft tissues. No abnormal hilar or mediastinal hypermetabolic uptake is appreciated. There is visible but non hypermetabolic linear uptake along the left inferolateral pleural space. This is equivocal. No other abnormal pleural or pulmonary parenchymal hypermetabolic uptake is seen. In the liver, the recently identified huge liver mass in the right lobe shows heterogeneous hypermetabolic uptake. Maximum standard uptake value in the main component of the large liver lesion is 11.22. There are multiple smaller mildly hypermetabolic foci in the left lobe with maximum SUV value ranging up to 5.2. There is hypermetabolic retroperitoneal adenopathy in the upper abdomen maximum SUV value 4.45. No other abnormal intra-or pelvic hypermetabolic uptake is seen. On bone window settings, there is a focal area of hypermetabolic uptake in the left posterosuperior acetabulum with maximum SUV value 3.62. Superior to this there is a larger lesion in the left iliac bone with maximum standard uptake value 4.20. Still higher in the left iliac bone adjacent to the left SI joint, there is another small hypermetabolic lesion on the left, maximum standard uptake value 5.02. There is a 1 cm lytic lesion in the right lamina at the L3 vertebral body level consistent with a posterior element skeletal metastatic lesion. Maximum standard uptake value here is 9.41. There are subtle hypermetabolic foci involving a left posterolateral rib and the right 2nd lateral rib. IMPRESSION: 1. Old intracranial infarction involving the right frontal and temporal lobes. 2. There is a 1 cm hypermetabolic left subclavian lymph node. No other abnormal breast uptake is seen. 3. Extensive hypermetabolic nodular uptake throughout the liver corresponding with recent MRI. 4. There is multifocal hypermetabolic skeletal uptake consistent with bony metastatic disease. 5. Equivocal linear non hypermetabolic pleural uptake left lower lateral chest. <Electronically signed by Tristan Gannon > 05/08/21 [id number]
== END ==
LOC: M PLARAD 09:54
PROVIDERS: ATTEND Internal Medicine
DX: D37.6 Neoplasm of uncertain behavior of liver, gallbladder and bile ducts (principal); R59.0 Localized enlarged lymph nodes; M89.9 Disorder of bone, unspecified
CPT/HCPCS: 78815; A9552

== ENCOUNTER → 2021-07-04 | Outpatient (REF) | payer MEDICARE, MEDICAID ==
[~2021-07-04] MED LIST changes: -ALEN35TA54; +ALEN35TA56 PO; +ATIV1TAB10 PO; +ESOM40CA35 PO; +HYDR-3713 PO; +HYOS125TA PO; +IBRA125C PO; +LETR2.5T2 PO; -METO1TAB87; +METO1TAB87 PO; +MORP1SOL5; +NITR100C2 PO; -OXYB10TA23; +OXYB10TA23 PO; -PREV1CAP; +PREV1CAP PO; +PROC10TA4 PO; +VITMTA PO
[2021-07-04 17:53] LABS: APPEARANCE, URINE TURBID (CLEAR); BACTERIA, URINE AUTO NEGATIVE (NEGATIVE); BILIRUBIN, URINE AUTO 1+ (NEGATIVE); BLOOD, URINE BLOOD NEGATIVE (NEGATIVE); COLOR, URINE AMBER (YELLOW); GLUCOSE, URINE (UA) AUTO NEGATIVE (NEGATIVE); KETONE, URINE AUTO TRACE mg/dL (NEGATIVE); LEUKOCYTE ESTERASE, URINE AUTO 2+ (NEGATIVE); MUCUS, URINE SMALL (NEGATIVE); NITRITE, URINE AUTO NEGATIVE (NEGATIVE); PROTEIN, URINE AUTO 1+ mg/dL (NEGATIVE); RBC, URINE AUTO 0 /HPF (0-3); SQUAMOUS EPITHELIAL CELL UR AU 5 /HPF (0-6); TRANSITIONAL EPITHELIAL AUTO 1 /HPF; WBC, URINE AUTO 8 /HPF (0-3)
== END ==
LOC: M LAB REF 16:34
PROVIDERS: ATTEND Internal Medicine
DX: N39.0 Urinary tract infection, site not specified (principal)

== ENCOUNTER → 2021-09-29 | Outpatient (CLI) | payer MEDICARE | LOC: M PLALAB 15:03 | PROVIDERS: ATTEND Psychiatry & Neurology Neurology | DX: R56.9 Unspecified convulsions (principal) ==